=== PATIENT | male | born 1985 | race Caucasian/White ===

== ENCOUNTER 2019-05-09 12:23 | Emergency (ER) | payer SELFPAY ==
--- NOTE | 2019-05-09 13:50 | ED ---
Head Injury - HPI Summary HPI Summary: Patient is a 33 y/o M presenting to the ED for a chief complaint of head injury that occurred on 05/06/19 after a fall. 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 During the fall, he had a loss of consciousness for approximately 20 seconds. Currently, patient complains of ecchymosis of the right eye, intermittent headache, nausea, and left-sided neck pain. Patient denies any fever, chills, erythema of eyes, blurred vision, sore throat, chest pain, shortness of breath, cough, abdominal pain, vomiting, dysuria, hematuria, edema, rash, numbness, paresthesia, or dizziness. He was seen by his PCP, Dr. Esparza, on 05/09/19 and sent to [facility]. PMHx is significant for insomnia and depression. He admits occasional alcohol use. - History Of Current Complaint Chief Complaint: EDHeadInjury Stated Complaint: HEAD INJURY PER PT Time Seen by Provider: 05/09/19 13:16 Hx Obtained From: Patient Mechanism Of Injury: Fall From A Standing Position Onset/Duration: Traumatic - Fall, Still Present Onset of Pain: Days Severity Currently: Moderate Severity Initially: Moderate Pain Intensity: 6 Pain Scale Used: 0-10 Numeric Location of Head Injury: Frontal Location: Discrete At: - Frontal Associated Signs And Symptoms: LOC (Time In Secs./Mins/Hrs) - 20 seconds, Neck Pain - Left, Nausea, Bruising - Right eye, Headache - Intermittent - Allergies/Home Medications Allergies/Adverse Reactions: Allergies Allergy/AdvReac Type Severity Reaction Status Date / Time No Known Allergies Allergy Verified 05/09/19 12:30 PMH/Surg Hx/FS Hx/Imm Hx Previously Healthy: Yes Sensory History: Denies: Hx Legally Blind, Hx Deafness Opthamlomology History: Denies: Hx Legally Blind EENT History: Denies: Hx Deafness Psychiatric History: Reports: Hx Depression, Other Psychiatric Issues/Disorders - Insomnia - Surgical History Surgical History: None Surgery Procedure, Year, and Place: None Infectious Disease History: No Infectious Disease History: Denies: Traveled Outside the [place] in Last 30 Days - Family History Known Family History: Negative: Hypertension, Renal Disease - Social History Occupation: Employed Full-time Lives: With Family Alcohol Use: Rare Hx Substance Use: No Substance Use Type: Reports: None Hx Tobacco Use: No Smoking Status (MU): Never Smoked Tobacco Review of Systems Negative: Fever, Chills Positive: Other - Positive ecchymosis of the right eye. Negative: Blurred Vision, Erythema Negative: Sore Throat Negative: Chest Pain Negative: Shortness Of Breath, Cough Positive: Nausea. Negative: Abdominal Pain, Vomiting Negative: dysuria, hematuria Positive: Myalgia - Left neck. Negative: Edema Negative: Rash Neurological: Other - Negative dizziness Positive: Headache. Negative: Paresthesia, Numbness All Other Systems Reviewed And Are Negative: Yes Physical Exam - Summary Physical Exam Summary: Constitutional: Well-developed, Well-nourished, Alert. (-) Distressed Skin: Warm, Dry HENT: Normocephalic; Atraumatic Eyes: Conjunctiva normal Neck: Musculoskeletal ROM normal neck. (-) JVD, (-) Stridor, (-) Tracheal deviation Cardio: Rhythm regular, rate normal, Heart sounds normal; Intact distal pulses; The pedal pulses are 2+ and symmetric. Radial pulses are 2+ and symmetric. (-) Murmur Pulmonary/Chest wall: Effort normal. (-) Respiratory distress, (-) Wheezes, (-) Rales Abd: Soft. (-) Tenderness, (-) Distension, (-) Guarding, (-) Rebound Musculoskeletal: (-) Edema Lymph: (-) Cervical adenopathy Neuro: Alert, Oriented x3, Strength normal, Cranial nerves II-XII are grossly intact. (-) Dysmetria, (-) Nystagmus, (-) Ataxia by finger to nose testing, (-) Sensory deficit. Psych: Mood and affect Normal Triage Information Reviewed: Yes Vital Signs On Initial Exam: Initial Vitals Temp Pulse Resp BP Pulse Ox 97.4 F 72 16 159/89 98 05/09/19 12:24 05/09/19 12:24 05/09/19 12:24 05/09/19 12:24 05/09/19 12:24 Vital Signs Reviewed: Yes - [place] Coma Scale Best Eye Response: 4 - Spontaneous Best Motor Response: 6 - Obeys Commands Best Verbal Response: 5 - Oriented Coma Scale Total: 15 Procedures - Sedation Patient Received Moderate/Deep Sedation with Procedure: No Diagnostics - Vital Signs Vital Signs Temp Pulse Resp BP Pulse Ox 05/09/19 12:24 97.4 F 72 16 159/89 98 - Laboratory Lab Statement: Any lab studies that have been ordered have been reviewed, and results considered in the medical decision making process. - CT Brain CT CT Interpretation Completed By: Radiologist Summary of CT Findings: Brain CT IMPRESSION: #. No CT evidence for traumatic brain injury or acute intracranial process. Reviewed by Dr. Nuñez. Cervical Spine CT CT Interpretation Completed By: Radiologist Summary of CT Findings: Cervical Spine CT IMPRESSION: #. No CT evidence for traumatic cervical spine injury. Reviewed by Dr. Nuñez. Maxillofacial CT CT Interpretation Completed By: Radiologist Summary of CT Findings: Maxillofacial CT IMPRESSION: NO EVIDENCE OF FRACTURE. Reviewed by Dr. Nuñez. Head Injury Course/Dx Course Of Treatment: Patient is a 33 y/o M presenting to the ED for a chief complaint of head injury that occurred on 05/06/19 after a fall. 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 During the fall, he had a loss of consciousness for approximately 20 seconds. Currently, patient complains of ecchymosis of the right eye, intermittent headache, nausea, and left-sided neck pain. Patient denies any fever, chills, erythema of eyes, blurred vision, sore throat, chest pain, shortness of breath, cough, abdominal pain, vomiting, dysuria, hematuria, edema, rash, numbness, paresthesia, or dizziness. He was seen by his PCP, Dr. Esparza, on 05/09/19 and sent to [facility]. PMHx is significant for insomnia and depression. On exam, unremarkable, including normal neurological exam. In the ED course, patient was given acetaminophen [address] IMPRESSION: #. No CT evidence for traumatic brain injury or acute intracranial process. Maxillofacial CT IMPRESSION: NO EVIDENCE OF FRACTURE. Cervical Spine CT IMPRESSION: #. No CT evidence for traumatic cervical spine injury. Patient will be discharged with a diagnosis of moderate concussion and facial contusion. Follow up with Dr. Esparza in 2-3 days. - Diagnoses Provider Diagnoses: Facial contusion, Concussion Discharge ED - Sign-Out/Discharge Documenting (check all that apply): Patient Departure - Discharge - Discharge Plan Condition: Stable Disposition: HOME Patient Education Materials: Concussion (ED) Forms: *Work Release Referrals: Rodrigue Esparza MD [Primary Care Provider] - Additional Instructions: RETURN TO THE EMERGENCY DEPARTMENT FOR CHANGING OR WORSENING SYMPTOMS. Follow up with Dr. Esparza in 2-3 days. You must be medically cleared by Dr. Esparza before you can return to work. - Attestation Statements Document Initiated by Onel: Yes Documenting Scribe: Winnie Moreira Provider For Whom Scribe is Documenting (Include Credential): Tyson Nuñez MD Scribe Attestation: I, Winnie Moreira, scribed for Tyson Nuñez MD on 05/09/19 at 1601. Status of Scribe Document: Ready
[2019-05-09] MEDS ORDERED: Acetaminophen TAB* 325 MG PO ONE (13:52)
[2019-05-09 16:35] VITALS: BP 153/80
== END 2019-05-09 16:34 | disposition home or self-care (01) ==
LOC: ED 12:23
DX: S06.0X1A Concussion with loss of consciousness of 30 minutes or less, initial encounter (principal); S05.11XA Contusion of eyeball and orbital tissues, right eye, initial encounter; M54.2 Cervicalgia; R11.0 Nausea; W01.0XXA Fall on same level from slipping, tripping and stumbling without subsequent striking against object, initial encounter; Y93.89 Activity, other specified; Y92.9 Unspecified place or not applicable; Y99.0 Civilian activity done for income or pay
CPT/HCPCS: 70450; 70486; 72125; 99282; A9270-GY